=== PATIENT | male | born 1990 | race African-American/Black ===

== ENCOUNTER 2017-07-03 14:37 | Emergency (ER) | payer OTHER, SELFPAY ==
[2017-07-03] MEDS ORDERED: Dexamethasone 4 mg/ml Vial ONE (15:05)
[2017-07-03] MEDS ORDERED: Ketorolac Tromethamine 30 MG/ML VIAL ONE (15:05)
== END 2017-07-03 15:29 | disposition home or self-care (01) ==
LOC: ERS 14:37
DX: J02.9 Acute pharyngitis, unspecified (principal)
CPT/HCPCS: 87081; 87430; 96372; J1100; J1885

== ENCOUNTER 2018-04-09 18:32 | Emergency (ER) | payer SELFPAY ==
[2018-04-09] MEDS ORDERED: Ketorolac Tromethamine 60 MG/2 ML VIAL ONE (20:57)
[2018-04-09] MEDS ORDERED: Diazepam 5 MG TAB ONE (21:02)
--- NOTE | 2018-04-09 22:05 | RAD ---
THORACIC SPINE THREE VIEWS: HISTORY: Injury with back pain. FINDINGS: The thoracic vertebrae maintain normal height and alignment. Disk spaces are normally maintained. N o compression deformity. No lytic or blastic process. IMPRESSION: Unremarkable thoracic spine. POS: AGW
--- NOTE | 2018-04-09 22:07 | RAD ---
CERVICAL SPINE THREE VIEWS: HISTORY: Injury with pain to neck. FINDINGS: There is straightening of the lordotic curvature with slight kyphotic curvature of the cervical spine in the lateral projection. The cervical vertebrae maintain normal height and alignment. Disk spaces are preserved. The posteri or elements are normally aligned. No fracture. No compression deformity. IMPRESSION: Straightening of the lordotic curvature with slight flexion deformity. No acute osseous abnormality of the cervical spine identified. POS: AGW
== END 2018-04-09 23:25 | disposition home or self-care (01) ==
LOC: ERS 18:32
DX: S16.1XXA Strain of muscle, fascia and tendon at neck level, initial encounter (principal); W51.XXXA Accidental striking against or bumped into by another person, initial encounter
CPT/HCPCS: 72040; 72072; 96372; J1885

== ENCOUNTER 2019-03-15 13:29 | Emergency (ER) | payer SELFPAY ==
[2019-03-15] MEDS ORDERED: HYDROcodone/Acetaminophen 10/325 mg Tablet ONE (13:56)
--- NOTE | 2019-03-15 15:40 | CT ---
NONCONTRAST CT LUMBAR SPINE: 03/15/19 HISTORY: 28-year-old male with low back pain for one week. COMPARISON: None. FINDINGS: There is a transitional vertebra at the lumbosacral junction. Using the telegraph service rater AP image that includes the entire chest and lumbar spine for counting purposes, there are twelve paired ribs, followed by s ix nonribbearing lumbar type vertebrae. Transitional level at the lumbosacral junction will be design ated as L6, and the first nonribbearing vertebra will be designated as L1. There is no lumbar scolios is. 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 Vertebral body heights are mainta ined. Alignment is normal. No scoliosis of the thoracic spine. On the telegraph service rater AP view, there is focal s coliosis at mid-upper thoracic spine. No spondylolisthesis or spondylolysis. No fracture. No gross ab normality of perivertebral spaces. There is mild to moderate disc space narrowing at L5-6, where ther e is a moderate sized central and bilateral paracentral disc herniation that mildly displaces the domingo ateral L6 nerve roots. The extruded disc material migrates superiorly to the pedicle level of L5. IMPRESSION: 1. 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 2. Degenerative disc disease at L5-6 where there is a moderate sized central and bilateral parac entral disc herniation, at least mildly impinging on the bilateral L6 nerve roots. 3. Incidental finding of focal scoliosis of the upper-mid thoracic spine (noted on telegraph service rater scanogr am). POS: CET
[2019-03-15] MEDS ORDERED: Diazepam 5 MG TAB ONE (15:52)
== END 2019-03-15 16:51 | disposition home or self-care (01) ==
LOC: ERS 13:29
DX: M54.5 Low back pain (principal); F17.210 Nicotine dependence, cigarettes, uncomplicated
CPT/HCPCS: 72131

== ENCOUNTER 2019-09-27 10:43 | Emergency (ER) | payer SELFPAY ==
--- NOTE | 2019-09-27 11:51 | RAD ---
2 view chest: [09/27/2019] Comparison:None available HISTORY: Sore throat with cough and congestion FINDINGS: Heart and mediastinal contours are grossly unremarkable. No pneumothorax or pleural fluid. No focal consolidation or alveolar edema. IMPRESSION: No acute findings.
== END 2019-09-27 12:05 | disposition home or self-care (01) ==
LOC: ERS 10:43
DX: J20.9 Acute bronchitis, unspecified (principal); F17.210 Nicotine dependence, cigarettes, uncomplicated
CPT/HCPCS: 71046

== ENCOUNTER 2020-03-11 13:31 | Emergency (ER) | payer SELFPAY ==
[2020-03-11] MEDS ORDERED: Morphine 4 MG/ML VIAL ONE (14:24)
[2020-03-11] MEDS ORDERED: cefTRIAXone\\ROCEPHIN 250 MG VIAL ONE (14:25)
[2020-03-11] MEDS ORDERED: Azithromycin 250 MG TAB ONE (14:25)
[2020-03-11] MEDS ORDERED: Lidocaine 1% PF 5 ML VIAL ONE (14:25)
--- NOTE | 2020-03-11 15:07 | ULT ---
SCROTAL ULTRASOUND INDICATION: Testicular pain and right inguinal pain for 3 days TECHNIQUE: Grayscale, color Doppler spectral Doppler images were obtained of the scrotum. COMPARISON: None. FINDINGS: Right Testicle: Size: 4.9 x 2.8 x 3.8 cm. Flow: Increased vascular flow to the right testicle Hydrocele: Small right-sided hydrocele Epididymis: Increased vascular flow to the right epididymis Left Testicle: Size: 4.5 x 2.8 x 4.7 cm. Flow: Increased vascular flow to the left testicle Hydrocele: Small left hydrocele Epididymis: Increased vascular flow to the left epididymis. Additional findings: None. Impression: 1. Bilateral epididymal orchitis with small bilateral hydroceles.
[2020-03-11 15:27] LABS: Bilirubin Negative (Negative); Blood, Urine Trace (Negative); Clarity Turbid (Clear); Glucose, Urine (Dipstick) Normal (Negative); Ketone, Urine Negative (Negative); Leukocyte 500 Leu/uL (Negative); Mucous/LPF 1+ LPF (<2+); Nitrite Negative (Negative); Protein, Urine (Dipstick) Negative (Neg-Trace); RBC/HPF 0-3 HPF (0-3); Renal Epithelial 0-3 HPF (None Seen); Specific Gravity, Urine 1.015 (1.002-1.036); Squamous Epithelial 0-3 HPF (0-3); Transitional Epithelial 0-3 HPF (None Seen); Urobilinogen Normal mg/dL (Less than 2); WBC/HPF Greater than 50 HPF (0-3); pH, Urine 6.5 (5.0-9.0)
[2020-03-11 15:36] LABS: Bacteria/HPF None Seen HPF (None Seen); Yeast-Budding None Seen HPF (None Seen)
[2020-03-13 23:03] LABS: Chlam.trachomatis by PCR,Urine Not Detected (NotDetected)
== END 2020-03-11 15:40 | disposition home or self-care (01) ==
LOC: ERS 13:31
DX: N45.2 Orchitis (principal); F17.200 Nicotine dependence, unspecified, uncomplicated
CPT/HCPCS: 76870; 81003; 81015; 87491; 87591; 93976; 96372; J0696; J2270

== ENCOUNTER 2021-04-23 22:31 | Emergency (ER) | payer OTHER, SELFPAY | END 2021-04-23 23:35 | disposition home or self-care (01) | LOC: ERS 22:31 | DX: M25.532 Pain in left wrist (principal); W23.0XXA Caught, crushed, jammed, or pinched between moving objects, initial encounter; Y92.34 Swimming pool (public) as the place of occurrence of the external cause ==